=== PATIENT | male | born 1970 | race Caucasian/White ===

== ENCOUNTER 2019-04-09 17:36 | Emergency (ER) | payer MEDICAID | END 2019-04-09 19:36 | disposition home or self-care (01) | LOC: FTE 17:36 | DX: N48.1 Balanitis (principal); E10.9 Type 1 diabetes mellitus without complications; Z79.82 Long term (current) use of aspirin; Z87.891 Personal history of nicotine dependence | CPT/HCPCS: 99283; Z7502 ==